=== PATIENT | female | born 1965 | race Caucasian/White ===

== ENCOUNTER → 2018-07-22 | Outpatient (CLI) | payer OTHER ==
[~2018-07-22] MED LIST: CYAN100T25 PO; HYDR-2966 PO; LISI20TA29 PO; MULT-1335 PO
--- NOTE | 2018-07-22 11:28 | RADIOLOGY IMAGING REPORT ---
[place] [facility] [place] FIDE CUMMINS : [id number] MR: [id number] V: [id number] EXAM DATE: [id number] ORDERING PHYSICIAN: NOEMI SPANGLER TECHNOLOGIST: Dorothy Velasquez PROCEDURE:BILATERAL DIGITAL SCREENING MAMMOGRAM WITH CAD ASSISTED INTERPRETATION & 3D TOMOSYNTHESIS COMPARISON:Prior mammograms 07/21/17, 07/15/16, 07/11/15, 07/05/14, 07/04/13, 07/01/12. INDICATIONS:screening FINDINGS: A small amount of fibroglandular tissue is seen throughout the breasts. The parenchymal pattern has remained stable allowing for difference in mammographic technique & patient positioning. There is no evidence of malignant appearing mass, malignant appearing calcifications or other secondary sign of malignancy in either breast. DIAGNOSTIC CATEGORY 1--NEGATIVE. RECOMMENDATIONS: ROUTINE MAMMOGRAM AND CLINICAL EVALUATION. IMPRESSION: BIRADS 1: Negative. No significant abnormality is seen. Dictated by: Krista Stephens M.D. on 07/22/2018 at 8:48 Transcribed by: KEKE on 07/22/2018 at 8:59 Approved by: Krista Stephens M.D. on 07/22/2018 at 11:26 [facility]
== END ==
LOC: MAMO 03:33
PROVIDERS: ATTEND Nurse Practitioner Family
DX: Z12.31 Encounter for screening mammogram for malignant neoplasm of breast (principal); Z80.3 Family history of malignant neoplasm of breast
CPT/HCPCS: 77063; 77067

== ENCOUNTER → 2018-11-08 | Outpatient (CLI) | payer OTHER ==
--- NOTE | 2018-11-08 22:18 | RADIOLOGY IMAGING REPORT ---
FACILITY: [facility] [place] PATIENT NAME: Joy Howell : 1965 MR: [id number] V: [id number] EXAM DATE: ORDERING PHYSICIAN: LEVAR FIORE TECHNOLOGIST: Location: [facility] Patient: Joy Howell : 1965 Visit/Account:[id number] Date of Sevice: 11/08/2018 MRI right knee Indication: Right knee pain just below the patella. Fall on ice. Comparison: None available. Technique: Multiplanar, multisequence MRI examination is performed of the right knee without contrast . Findings: Medial compartment: Small complex oblique undersurface tear seen within the posterior horn medial meniscus. Minimal chondral thinning and irregularity mid weightbearing medial femoral condyle and medial tibial plateau cartilage. Lateral compartment: Minimal increased signal seen within the posterior horn and body of the lateral meniscus related to i ntrasubstance degenerative tearing with no abnormal signal extending to the articular surface on thes e images. High-grade oblique fissuring of the mid weightbearing lateral tibial plateau cartilage with underlyin g subchondral impaction fracture lateral tibial plateau with prominent surrounding marrow edema noted best on images 18 through 22 of the coronal series and on images 10 through 13 of the sagittal serie s. Patellofemoral compartment: Full-thickness chondral loss involving the lateral facet and median ridge patella cartilage as well a s the lateral trochlea groove cartilage with multiple foci of underlying subchondral edema. Bones and marrow: Subchondral impaction fracture lateral tibial plateau as described above. Ligaments and tendons: ACL and PCL are intact. The extensor mechanism is intact. The MCL is intact. The iliotibial band, biceps femoris tendon, and the fibular collateral ligament is intact The popliteus tendon is also intact. Soft tissues: There is a moderate sized suprapatellar joint effusion. Mild prepatellar edema seen. IMPRESSION: 1. Subchondral impaction fracture lateral tibial plateau with prominent surrounding marrow edema as described above. 2. Extensive chondral loss patellofemoral compartment cartilage. 3. Small complex oblique undersurface tear posterior horn medial meniscus. Report Dictated By: Vinh Shrestha MD at 11/08/2018 10:10 PM Report E-Signed By: Vinh Shrestha MD at 11/08/2018 10:14 PM WSN:[email or web address]
== END ==
LOC: MRI 14:33
PROVIDERS: ATTEND Orthopaedic Surgery
DX: S83.511A Sprain of anterior cruciate ligament of right knee, initial encounter (principal)